=== PATIENT | female | born 1965 | race Caucasian/White ===

== ENCOUNTER 2019-02-08 09:10 | Day surgery (SDC) | payer OTHER ==
[~2019-02-08] VITALS: Ht 170.2 cm; Wt 80.3 kg
--- NOTE | 2019-02-08 10:52 | NUR ---
02/08/19 1052 Diana Field LIDOCAINE JELLY APPLIED AT BEGINNING OF PROCEDURE BY PROVIDER. PT C/O ANAL SORENESS IN PREOP.
--- NOTE | 2019-02-08 11:45 | NUR ---
02/08/19 1145 Diana Field PT C/O 06/02 ABD CRAMPING AND MASSAGING HER STOMACH IN SDU. RN ADVISED PT TO CONTINUE MASSAGING AND MOVING WILL HELP PASS AIR. RN ALSO MADE PT AWARE THAT ABDOMINAL PRESSURE WAS USED IN PROCEDURE AND THAT MAY CONTRIBUTING TO THE ABDOMINAL PAIN. PT STATES IT FEELS "LIKE AIR IS THERE. LIKE MENSTRUAL CRAMPS." PT STATES IT IS TOLERABLE AND IS AWARE IT SHOULD DISSAPATE AND TO CALL IF IT GETS WORSE.
[2019-02-08] MEDS ORDERED: OMEPRAZOLE MAGN20 MG PO (13:22)
== END 2019-02-08 11:41 | disposition home or self-care (01) ==
LOC: ORSCSDS 09:10
PROVIDERS: Surgery
PROC: 0DBP8ZX Excision of Rectum, Via Natural or Artificial Opening Endoscopic, Diagnostic (ICD-10-PCS; principal; 2019-02-08 10:30)
DX: Z12.11 Encounter for screening for malignant neoplasm of colon (principal); K62.1 Rectal polyp; I10 Essential (primary) hypertension; F17.210 Nicotine dependence, cigarettes, uncomplicated
CPT/HCPCS: 88305; J2405; J2704; J7120

== ENCOUNTER → 2023-04-28 | Outpatient (CLI) | payer OTHER ==
[~2023-04-28] MED LIST: OMEPRAZOLE MAGN20 MG PO
== END | disposition home or self-care (01) ==
LOC: LAB SHORT 10:48 → LAB 10:48
DX: K58.1 Irritable bowel syndrome with constipation (principal); R10.13 Epigastric pain
CPT/HCPCS: 87338

== ENCOUNTER → 2024-07-30 | Outpatient (CLI) | payer BC ==
[2024-07-30 17:11] LABS: Source, Urine Clean Catch
[2024-07-30 18:43] LABS: Appearance, Urine Clear (Clear); Bilirubin, Urine Neg (Neg); Blood, Urine 4+ (Neg); Color, Urine Yellow (P-Yellow); Glucose Qualitative, Urine Neg (Neg); Ketones, Urine Neg (Neg); Leukocyte Esterase, Urine Neg (Neg); Nitrite, Urine Neg (Neg); Protein, Urine Neg (Neg); Urobilinogen, Urine NORM (Normal)
[2024-07-30 19:04] LABS: White Blood Cells, Urine 0-2 /hpf (0-5)
[2024-07-30 19:05] LABS: Bacteria Many /hpf; Squamous Epithelial Cells Mod /hpf (Few)
== END | disposition home or self-care (01) ==
LOC: LAB SHORT 17:10 → LAB 17:10
PROVIDERS: Internal Medicine
DX: R30.0 Dysuria (principal)
CPT/HCPCS: 81001; 87086